=== PATIENT | male | born 1940 | race Caucasian/White ===

== ENCOUNTER 2018-03-21 11:30 | Day surgery (SDC) | payer MEDICARE, BC ==
[~2018-03-21] VITALS: Ht 177.8 cm; Wt 93.0 kg
[~2018-03-21 11:30] MED LIST: ATOR40TA PO; Aspirin EC81 MG PO; Dyazide 37.5-21 EACH PO; EZET10 PO; LISI20 PO; METO50ER PO
[2018-03-21] MEDS ORDERED: Prilosec Otc20 MG PO (12:00)
== END 2018-03-21 13:24 | disposition home or self-care (01) ==
LOC: ORSCSDS 11:30
PROVIDERS: Student in an Organized Health Care Education/Training Program
PROC: 0DB68ZX Excision of Stomach, Via Natural or Artificial Opening Endoscopic, Diagnostic (ICD-10-PCS; principal; 2018-03-21 12:45)
PROC: 0DB98ZX Excision of Duodenum, Via Natural or Artificial Opening Endoscopic, Diagnostic (ICD-10-PCS; principal; 2018-03-21 12:45)
PROC: 0DB58ZX Excision of Esophagus, Via Natural or Artificial Opening Endoscopic, Diagnostic (ICD-10-PCS; principal; 2018-03-21 12:45)
DX: R10.13 Epigastric pain (principal); R13.10 Dysphagia, unspecified; K21.9 Gastro-esophageal reflux disease without esophagitis; K22.70 Barrett's esophagus without dysplasia; K44.9 Diaphragmatic hernia without obstruction or gangrene; I10 Essential (primary) hypertension; I25.10 Atherosclerotic heart disease of native coronary artery without angina pectoris; E78.00 Pure hypercholesterolemia, unspecified; Z79.899 Other long term (current) drug therapy
CPT/HCPCS: 88305; 88342; J7120

== ENCOUNTER 2018-11-14 11:19 | Day surgery (SDC) | payer MEDICARE, BC ==
[~2018-11-14] VITALS: Ht 177.8 cm; Wt 93.1 kg
[~2018-11-14 11:19] MED LIST changes: +ASCO500 PO; +Aspir 8181 MG PO; +DAILY VALUE1 EACH PO; +Prilosec Otc20 MG PO
--- NOTE | 2018-11-14 14:33 | NUR ---
11/14/18 1433 Summer Marroquin V PT HAD LOW BP UPON ARRIVING TO SDU. REPORT GIVEN BY ORS.NSC TO ORS.NVP WHO ASSUMED CARE. PT DENIED FEELING SYMPTOMATIC. PT GIVEN 125ML OF LR AND A CUP OF COFFEE. BP IMPROVED, D/C INSTRUCTIONS COMPLETED, AND PT D/C HOME PER PROTOCOL.
== END 2018-11-14 14:24 | disposition home or self-care (01) ==
LOC: ORSCSDS 11:19
PROVIDERS: Student in an Organized Health Care Education/Training Program
PROC: 0DB58ZX Excision of Esophagus, Via Natural or Artificial Opening Endoscopic, Diagnostic (ICD-10-PCS; principal; 2018-11-14 12:45)
DX: K22.70 Barrett's esophagus without dysplasia (principal); K44.9 Diaphragmatic hernia without obstruction or gangrene; I10 Essential (primary) hypertension; I25.810 Atherosclerosis of coronary artery bypass graft(s) without angina pectoris; Z79.82 Long term (current) use of aspirin; Z79.899 Other long term (current) drug therapy
CPT/HCPCS: 88305; 88312; J2704

== ENCOUNTER 2020-04-16 08:59 | Inpatient (IN) | payer MEDICARE, BC ==
[~2020-04-16] VITALS: Ht 177.8 cm; Wt 87.1 kg
[~2020-04-16 08:59] MED LIST changes: -DAILY VALUE1 EACH PO; +DYAZIDE 37.5-21 EACH PO; -Dyazide 37.5-21 EACH PO; +MULTI-VITAMIN1 EAC2 PO
[2020-04-16 09:59] LABS: BASOPHILS ABSOLUTE AUTO 0.04 K/mm3 (0.00-0.23); BASOPHILS PERCENT AUTO 1 % (0-2); EOSINOPHILS ABSOLUTE AUTO 0.22 K/mm3 (0.00-0.68); EOSINOPHILS PERCENT AUTO 3 % (0-6); Hematocrit 47.9 % (37.0-53.0); Hemoglobin 15.9 g/dL (13.5-17.5); IMMATURE GRAN ABSOLUTE AUTO 0.02 K/mm3 (0.00-0.10); IMMATURE GRAN PERCENT AUTO 0 % (0-1); LYMPHOCYTES ABSOLUTE AUTO 1.14 K/mm3 (0.84-5.20); LYMPHOCYTES PERCENT AUTO 16 % (21-46); MONOCYTES ABSOLUTE AUTO 0.98 K/mm3 (0.16-1.47); MONOCYTES PERCENT AUTO 13 % (4-13); Mean Corpuscular HGB 30.1 pg (26.0-34.0); Mean Corpuscular HGB Conc 33.2 g/dL (31.5-36.5); Mean Corpuscular Volume 91 fL (80-100); Mean Platelet Volume 9.7 fL (9.1-12.4); NEUTROPHILS ABSOLUTE AUTO 4.89 K/mm3 (1.96-9.15); NEUTROPHILS PERCENT AUTO 67 % (41-73); Platelet Count 240 K/mm3 (150-400); RDW Coefficient Variation 12.9 % (11.7-14.2); RDW Standard Deviation 43.3 fL (35.1-46.3); Red Blood Cell Count 5.28 M/mm3 (4.30-5.90); White Blood Cell Count 7.29 K/mm3 (4.00-11.30)
[2020-04-16 10:18] LABS: Alanine Aminotransfer (ALT/SGP 45 U/L (12-78); Albumin/Globulin Ratio 1.1 (0.8-1.8); Alk Phos 55 U/L (50-136); Anion Gap 10 mmol/L (6-16); Aspartate Aminotrans (AST/SGOT 33 U/L (12-37); Bilirubin, Total 0.7 mg/dL (0.1-1.0); Blood Urea Nitrogen 16 mg/dL (8-24); Bun/Creatinine Ratio 19.5 (12.0-20.0); CO2, Blood 26 mmol/L (21-32); Calcium, Blood 9.1 mg/dL (8.5-10.1); Chloride, Blood 99 mmol/L (98-108); Creatinine, Blood 0.82 mg/dL (0.60-1.20); Globulin, Blood 3.5 g/dL (2.2-4.0); Glomerular Filtration Rate >60 (60-); Glucose, Blood 86 mg/dL (70-99); Sodium, Blood 135 mmol/L (136-145); Total Protein, Blood 7.5 g/dL (6.4-8.2)
[2020-04-16 10:22] LABS: Troponin I 0.607 ng/mL (0.000-0.040)
[2020-04-16] MEDS ORDERED: LISI20 PO (10:42)
[2020-04-16] MEDS ORDERED: Inderal 20 mg T20 MG PO (10:45)
[2020-04-16 12:07] LABS: CPK Creatine Kinase 77 U/L (39-308)
[2020-04-16 12:12] LABS: International Normalized Ratio 1.14; Prothrombin Time Results 12.1 Sec (9.7-11.5)
[2020-04-16 16:25] LABS: Influenza A, PCR NEGATIVE (NEGATIVE); Influenza B, PCR NEGATIVE (NEGATIVE); Resp Syncytial Virus, PCR NEGATIVE (NEGATIVE); SARS-Cov-2 (COVID-19) PCR, MMC NEGATIVE (NEGATIVE)
--- NOTE | 2020-04-16 17:53 | NUR ---
SHIFT SUMMARY PT ADMITTED FROM THE ER FOR CHEST DISCOMFORT RELATED TO NSTEMI. HE CAME INTO THE ED YESTERDAY AND WENT AMA DUE TO NEEDING TO CARE FOR ANIMALS AT HOME. HE IS SBA/IND IN THE ROOM. HE HAS NOT C/O ANY CP/PRESSURE/DYSPNEA THIS SHIFT. CONSENT FOR DEANGELO SIGNED AND IN THE CHART. NPO AT MIDNIGHT FOR ANGIO. VSS.
[2020-04-16 20:05] LABS: CPK Creatine Kinase 73 U/L (39-308)
--- NOTE | 2020-04-17 04:04 | NUR ---
SHIFT SUMMARY ASSUMED CARE OF PT AT 1900. PT IS A/OX4. HEART SOUNDS REGULAR, LUNG SOUNDS CLEAR. PT IS INDEPENDENT IN HIS ROOM. PT APTT WAS 139, PHARMACY CONSULTED AND SAID TO STOP HEPRIN FOR 1 HOUR AND RESTART AT LOWER RATE. PT TROPONIN WAS ELEVATED ALSO, CHARGE NURSE NOTIFIED AND SAID THAT THIS WAS AN ACCEPTABLE HIGH. PT ALREADY RECEIVING THERAPY AND BEEN NPO SINCE MIDNIGHT FOR ANGIO THIS AM. CALL LIGHT IN REACH, BED IN LOWEST POSTION.
[2020-04-17 04:33] LABS: BASOPHILS ABSOLUTE AUTO 0.03 K/mm3 (0.00-0.23); BASOPHILS PERCENT AUTO 1 % (0-2); EOSINOPHILS PERCENT AUTO 3 % (0-6); Hematocrit 42.8 % (37.0-53.0); Hemoglobin 14.9 g/dL (13.5-17.5); IMMATURE GRAN ABSOLUTE AUTO 0.02 K/mm3 (0.00-0.10); IMMATURE GRAN PERCENT AUTO 0 % (0-1); LYMPHOCYTES ABSOLUTE AUTO 1.37 K/mm3 (0.84-5.20); LYMPHOCYTES PERCENT AUTO 21 % (21-46); MONOCYTES ABSOLUTE AUTO 0.84 K/mm3 (0.16-1.47); MONOCYTES PERCENT AUTO 13 % (4-13); Mean Corpuscular HGB 30.8 pg (26.0-34.0); Mean Corpuscular HGB Conc 34.8 g/dL (31.5-36.5); Mean Corpuscular Volume 89 fL (80-100); Mean Platelet Volume 9.4 fL (9.1-12.4); NEUTROPHILS ABSOLUTE AUTO 3.95 K/mm3 (1.96-9.15); NEUTROPHILS PERCENT AUTO 62 % (41-73); Platelet Count 189 K/mm3 (150-400); RDW Coefficient Variation 12.9 % (11.7-14.2); Red Blood Cell Count 4.83 M/mm3 (4.30-5.90); White Blood Cell Count 6.41 K/mm3 (4.00-11.30)
[2020-04-17 05:04] LABS: Alanine Aminotransfer (ALT/SGP 35 U/L (12-78); Albumin, Blood 3.4 g/dL (3.4-5.0); Albumin/Globulin Ratio 1.1 (0.8-1.8); Alk Phos 49 U/L (50-136); Anion Gap 7 mmol/L (6-16); Aspartate Aminotrans (AST/SGOT 24 U/L (12-37); Bilirubin, Total 0.7 mg/dL (0.1-1.0); Blood Urea Nitrogen 19 mg/dL (8-24); CO2, Blood 29 mmol/L (21-32); Calcium, Blood 8.9 mg/dL (8.5-10.1); Chloride, Blood 101 mmol/L (98-108); Creatinine, Blood 0.79 mg/dL (0.60-1.20); Globulin, Blood 3.2 g/dL (2.2-4.0); Glomerular Filtration Rate >60 (60-); Glucose, Blood 97 mg/dL (70-99); Potassium, Blood 3.9 mmol/L (3.5-5.5); Sodium, Blood 137 mmol/L (136-145); Total Protein, Blood 6.6 g/dL (6.4-8.2)
--- NOTE | 2020-04-17 08:00 | NUR ---
pt laying in bed awake a/ox3, pleasant and cooperative with care, follows commands well, denies any complaints of pain or sob, states he's feeling ok, lungs are clear t/o, resp even and unlabored, no cough noted, hrr, tele in place running sr with pvc's per montior, see strip, no edema noted, ppp+1, cap refill <3 sec, vs stable, afebrile, iv sites are clear and patent, btx4, abd flat soft nontender, voids without diff, reddy urine, skin c/w/d, maew, ning, call light in reach.
--- NOTE | 2020-04-17 15:56 | NUR ---
PT ARRIVAL TO ICU... PT ARRIVED TO ICU AT 1430, PT IS A&Ox4 S/P 4 STENTS IN THE CHEF INSTRUCTOR WITH A FEM-STOP TO THE LEFT GROIN AND A FAILED RIGHT GROIN ACCESS. FEM-STOP IS SET TO 80mmHG, SMALL AMOUNT OF BLOOD NOTED UNDER THE FEM-STOP. PT DENIES PAIN AT THIS TIME, VS STABLE, SR W/PACS IN THE 70'S-80'S. DENIES CHEST PAIN/PRESSURE. L/S CLEAR T/O ON RA. PT'S LEFT FOOT IS DUSKY, COOL WITH A >3 SECOND CAP REFILL. DORSAL PEDAL PULSE NOT FOUND ON THE LEFT SIDE, A DOPPLER WAS USED AND THE DORSAL PEDAL PULSE WAS STILL NOT FOUND. POST. TIBIAL PULSE WAS FOUND USING DOPPLER ON THE LEFT FOOT. THE FEM-STOP WAS DECREASED FROM 80mmHG TO 40mmHG TO SEE IF A PULSE COULD BE FOUND WITH LESS PRESSURE ON THE FEMSTOP, HOWEVER THERE STILL NO PEDAL PULSE FOUND. DR. DSOUZA WAS NOTIFIED OF NO PEDAL PULSE ON THE LEFT FOOT. CAME INTO THE ROOM TO ASSESS THE PT. PER DR. DSOUZA HE IS OKAY WITH ONLY HAVING THE POST. TIBIAL PULSE BEING PRESENT AT THIS TIME. THERE WAS ALSO NOTED OOZING AT THE FEM-STOP, DR. DSOUZA REPOSITIONED THE FEM-STOP AND THE OOZING STOPED. PT CONTINUES TO DENY ANY PAIN AT THIS TIME. THE FEM-STOP IS TO STAY IN PLACE AT 40mmHG UNTIL 1900, THEN IT CAN BE REMOVED. PT IS TO STAY FLAT UNTIL 2100. PT HAS NS RUNNING AT 100MLS/HR FOR 1l THEN DR. DSOUZA WANTS THE NS TO RUN AT 50MLS/HR AND THEN STOP THE FLUIDS. CALL LIGHT IN REACH WILL CONTINUE TO MONITOR.
--- NOTE | 2020-04-17 17:08 | NUR ---
SHIFT SUMMARY.... NO ACUTE NEGATIVE CHANGES SINCE PT ARRIVED ON UNIT. PT'S VS HAVE BEEN STABLE. FEM-STOP STILL IN PLACE UNTIL [address] DSOUZA'S ORDERS, ONCE THE FEM-STOP IS OFF PT MAY SIT UP TO 45 DEGREES AND EAT HIS DINNER TRAY. AT 2099 PT MAY GET UP AND WALK AROUND PER DR. DSOUZA'S VERBAL ORDER WELL. PT HAS NS RUNNING AT 100MLS/HR FOR ONE LITER, ONCE THIS IS DONE HE WANTS ANOTHER LITER TO RUN AT 50MLS/HR THEN FOR THE PT TO BE S/L. PT CONTINUES TO DENY ANY CHEST PAIN/PRESSURE OR ANY OTHER PAIN. PT IS TO GO BACK TO [facility] ON SUNDAY FOR ANOTHER PROCEDURE WITH DR. SAHU. PT HAS VERBALIZED HIS UNDERSTANDING OF THE PLAN OF CARE AND IS AGREEABLE AT THIS TIME. WILL CONTINUE TO MONITOR UNTIL REPORT IS GIVEN TO ONCOMING RN.
--- NOTE | 2020-04-17 20:55 | NUR ---
ASSUMPTION OF CARE PT AWAKE IN BED, ORIENTED TO SELF, EVENT, LOCATION, DATE AND FOLLOWING DIRECTIONS. REDNESS NOTED TO PTS L SCLERA, PT DENIES ANY INJURY. O2 SATURATIONS> 90% ON RA, MONITOR SHOWS SINUS RHYTHM WITH HR 70'S, BP STABLE. PT DENIES CP OR SOB. L PEDAL PULSES VERY FAINT, VERIFIED WITH DOPPLER. FEMSTOP IN PLACE TO L GROIN ACCESS SITE, SOME RED BLOOD NOTED AROUND FEMSTOP, DIFFICULT TO DISCERN IF CONTINUED OOZING OR OLD BLOOD. FEMSTOP INFLATED TO 30mmhg UPON ASSUMPTION OF CARE, @ 1999 FEMSTOP DEFLATED, REMOVED, SITE CLEANED AND TITO DRESSING PLACED, FEMSTOP REAPPLIED WITH MINIMAL PRESSURE TO SITE, PLAN TO RE-EVALUATE @ 2100 TO POSSIBLY REMOVE IF NO ADDITIONAL BLOOD PRESENT. PT DENIES ANY ABDOMINAL/BACK PAIN, ABD IS SOFT AND NONTENDER, SOME BRUISING NOTED AROUND L GROIN SITE, NO HEMATOMA PRESENT. PT PLACED IN REVERSE [place] FOR EATING, TOLERATES PO INTAKE, SWALLOWS PILLS WHOLE WITH WATER. PT VOIDS IN URINAL WITH SOME ASSISTANCE. PT MOVES ALL EXTREMETIES, CALL LIGHT WITHIN REACH, PT USING APPROPRIATELY.
--- NOTE | 2020-04-17 21:11 | NUR ---
FEMSTOP REMOVED NO NEW OOZING NOTED TO L GROIN SITE, FEMSTOP REMOVED, TITO DRESSING WITH TEGADERM IN PLACE.
--- NOTE | 2020-04-17 21:48 | NUR ---
L GROIN SITE REMAINS STABLE, NO NEW BLEEDING/OOZING, SITE SOFT AND NONTENDER.
--- NOTE | 2020-04-18 00:20 | NUR ---
CHEST PAIN TO PTS ROOM AND PT REPORTS MIDSTERNAL CHEST PAIN WITH INSPIRATION ALONG WITH CONSTANT SHARP BILAT SHOULDER PAIN, 8/10. NEW ORDER FOR EKG, FURTHER DISCUSSED WITH DR LEON, ONE TIME ORDER FOR 15mg TORADAL, HYDRALAZINE ADMINISTERED FOR SBP> 160. PT REPORTS LITTLE RELIEF WITH TORADAL, SBP 140'S. 0.4mg NITRO SL ADMINISTERED, PTS BP DROPPED TO 93/48 BUT HAD QUICK IMPROVEMENT TO 135/60. PT REPORTS CHEST PAIN IMPROVED TO 3/10.
[2020-04-18 04:16] LABS: BASOPHILS ABSOLUTE AUTO 0.03 K/mm3 (0.00-0.23); BASOPHILS PERCENT AUTO 0 % (0-2); EOSINOPHILS ABSOLUTE AUTO 0.11 K/mm3 (0.00-0.68); EOSINOPHILS PERCENT AUTO 1 % (0-6); Hematocrit 41.3 % (37.0-53.0); Hemoglobin 14.1 g/dL (13.5-17.5); IMMATURE GRAN ABSOLUTE AUTO 0.04 K/mm3 (0.00-0.10); IMMATURE GRAN PERCENT AUTO 0 % (0-1); LYMPHOCYTES ABSOLUTE AUTO 0.98 K/mm3 (0.84-5.20); LYMPHOCYTES PERCENT AUTO 10 % (21-46); MONOCYTES ABSOLUTE AUTO 0.99 K/mm3 (0.16-1.47); MONOCYTES PERCENT AUTO 10 % (4-13); Mean Corpuscular HGB 30.5 pg (26.0-34.0); Mean Corpuscular HGB Conc 34.1 g/dL (31.5-36.5); Mean Corpuscular Volume 89 fL (80-100); Mean Platelet Volume 9.5 fL (9.1-12.4); NEUTROPHILS ABSOLUTE AUTO 7.37 K/mm3 (1.96-9.15); NEUTROPHILS PERCENT AUTO 77 % (41-73); Platelet Count 198 K/mm3 (150-400); RDW Coefficient Variation 13.1 % (11.7-14.2); RDW Standard Deviation 42.9 fL (35.1-46.3); Red Blood Cell Count 4.62 M/mm3 (4.30-5.90); White Blood Cell Count 9.52 K/mm3 (4.00-11.30)
[2020-04-18 04:41] LABS: Alanine Aminotransfer (ALT/SGP 31 U/L (12-78); Albumin, Blood 3.4 g/dL (3.4-5.0); Albumin/Globulin Ratio 1.1 (0.8-1.8); Alk Phos 48 U/L (50-136); Anion Gap 6 mmol/L (6-16); Aspartate Aminotrans (AST/SGOT 25 U/L (12-37); Bilirubin, Total 0.5 mg/dL (0.1-1.0); Blood Urea Nitrogen 19 mg/dL (8-24); Bun/Creatinine Ratio 26.5 (12.0-20.0); CO2, Blood 28 mmol/L (21-32); Calcium, Blood 9.1 mg/dL (8.5-10.1); Chloride, Blood 104 mmol/L (98-108); Creatinine, Blood 0.72 mg/dL (0.60-1.20); Glomerular Filtration Rate >60 (60-); Glucose, Blood 97 mg/dL (70-99); Potassium, Blood 3.6 mmol/L (3.5-5.5); Sodium, Blood 138 mmol/L (136-145); Total Protein, Blood 6.4 g/dL (6.4-8.2)
--- NOTE | 2020-04-18 07:32 | NUR ---
CP/BRADYCARDIA/SHIFT SUMMARY @ APPROX 0300, PT REPORTED CP INCREASING TO 9/10 AND IS NOW CONSTANT. SL NITRO ADMINISTERED WITH NO RELEIF. CALL PLACED TO DR DSOUZA, NEW ORDERS FOR MORPHINE, NITRO PATCH AND REPEAT EKG. NO RELEIFT WITH NITRO PATCH AND MORPHINE. FENTANYL ADMINISTERD WITH NO RELEIF AND THEN GI COCKTAIL ADMINISTERED, PT REPORTS VERY MINIMAL RELEIF WITH CP DOWN TO 5/10, GRIMACING NOTED WITH EXERTION. PT PLACED ON 2L PER NC FOR ADDITIONAL SUPPORT. PT BECAME VERY COLD, SHIVERING, NOT DIAPHORETIC, WARM BLANKETS PROVIDED. PT REPORTED TO THIS RN THAT HE DOES NOT WANT ANY FORM OF RESUCITAION. DISCUSSED WTIH DR HOANG, CODE STATUS CHANGED TO DNR, PURPLE ARMBAND PLACED ON PTS LEFT WRIST. AT APPROX 0600 IT WAS NOTICED THAT PT WAS VOMITING AND HR DROPPED TO 38, BRADYCARDIA LASTED LESS THAN 20 SECONDS. PT DISORIENTED, ASKING "WHAT HAPPENED" AND THEN STATING "I THINK I ", PT BECAME MORE ORIENTED, BACK TO BASELINE, WITH HR 80'S, SINUS RHYTHM. ZOFRAN ADMINISTERD AND PT LAID DOWN TO GO TO SLEEP. DR DSOUZA UPDATED ON PTS STATUS, NEW ORDER FOR EKG WHEN PT WAKES UP, DC BRILINTA AND ORDER PLAVIX DAILY. REPORT GIVEN TO JD SAAVEDRA.
[2020-04-18 09:46] LABS: Source, Urine Catheter
[2020-04-18 09:50] LABS: Appearance, Urine Clear (Clear); Bilirubin, Urine Neg (Neg); Blood, Urine Neg (Neg); Color, Urine Yellow (P-Yellow); Glucose Qualitative, Urine Neg (Neg); Ketones, Urine 1+ (Neg); Leukocyte Esterase, Urine Neg (Neg); Nitrite, Urine Neg (Neg); Protein, Urine 1+ (Neg); Urobilinogen, Urine NORM (Normal)
--- NOTE | 2020-04-18 12:06 | NUR ---
AM NOTE... ASSUMED CARE OF PT AT 0715. AT 0720: PT IS A&Ox4. PT IS C/O OF 2/10 CHEST PAIN ON FIRST ASSESSMENT, PT WAS ALSO C/O OF A DRY COUGH AND SOB. AT 0735 PT STARTED TO C/O OF LEFT SHOULDER PAIN AT 8/10, SHORTLY AFTER THE SHOULDER PAIN SATARTED PT STARTED TO C/O OF 8/10 CHEST PAIN WHEN TAKING A BREATH. PT HAS A NITRO PATCH ON THE LEFT UPPER CHEST THAT WAS PRESENT AT THE START OF THIS SHIFT. PT ALSO HAD NS AT 50/MLS RUNNING PER ORDERS. PT'S BP STABLE WITH SBPs 120'S-130'S, HR STABLE SR W/1ST DEGREE AND OCC PACs. AN EKG WAS DONE PER PROVIDER'S ORDERS. PROVIDER WAS CALLED WITH UPDATE ON THE PT ABOUT HIS CP/SOB/SHOULDER PAIN AND EKG RESULTS. PER ORDERS A NITRO GTT WAS STARTED AT 10MCG/MIN, A STAT MAG WAS DRAWN AND A 2GM MAG RIDER WAS STARTED PER ORDERS. AT APROX 0815 DR. DSOUZA WAS AT THE BEDSIDE TO ASSESS THE PT. PT STILL C/O OF CHEST PAIN AFTER THE NITRO GTT WAS STARTED, THE NITRO PATCH ON THE LEFT CHEST WALL WAS REMOVED. A DENNY WAS PLACED D/T RETENTION AND THE PT BEING ON BED REST AT THE TIME. A STAT CHEST CTA WAS ORDERED AND THE PT WAS TAKEN TO CT. PT WAS RETURNED TO HIS ROOM, THE NITRO GTT WAS PLACED ON STANDBY D/T LOW BPs OF 80'S/50'S, A 1000MLS BOLUS OF NS WAS STARTED PER VERBAL ORDERS FROM DR. DSOUZA. PT RETURNED TO ICU 13 AND WAS TAKEN TO THE RADIO AERIAL INSTALLER AT 1025. PT WAS STILL C/O OF CHEST PAIN AT THE TIME HE LEFT. WILL CONTINUE TO MONITOR.
--- NOTE | 2020-04-18 15:59 | NUR ---
PT UPDATE... PT ARRIVED BACK FROM THE CARBON DIOXIDE OPERATOR AT 1330, PT HAS A LEFT GROIN SITE, A CENTRAL LINE TO THE RIGHT GROIN AND A TR BAND TO THE RIGHT WRIST. BOTH GROIN SITES ARE OOZING. DR. DSOUZA AT THE BEDSIDE TO ASSESS THE PT. PER DR. DSOUZA DIRECT PRESSURE FOR 20MINS WAS HELD TO THE LEFT GROIN SITE WITH A TITO DRESSING. OCNE THE 20MINS WAS DONE A SMALL AMOUNT OF OOZING WAS STILL NOTED. A SMALL AMOUNT OF OOZING WAS ALSO STILL NOTED TO THE CENTRAL LINE IN THE RIGHT GROIN WELL, A PRESSURE DRESSING WAS PLACED TO THE RIGHT CETRAL LINE SITE. AT 1600 IT WAS NOTED THAT THE LEFT GROIN SITE WAS MORE FIRM AND SLIGHTLY MORE PAINFUL THAN BEFORE. FEM-STOP WAS PLACED TO THE LEFT GROIN SITE, PROVIDER NOTIFIED, PROVIDER TO THE BEDSIDE TO ASSESS THE SITES. WILL CONTINUE TO MONITOR.
--- NOTE | 2020-04-18 16:42 | NUR ---
PT NOTED TO BE BRADYCARDIC. WHEN RN ARRIVED TO THE ROOM, PT WAS APNEIC AND IN ASYSTOLE. CPR DONE FOR APROXIMATELY ONE MINUTE AND ROSC. DR. DSOUZA ARRIVED AT THE BEDSIDE UPDATED. 12 LEAD ECG DONE. PT REPORTED NAUSEA AND VOMITED APROXIMATELY 100 CC EMESIS. MED WITH ZOFRAN 4 MG IVP X1 SEE EMAR. [address] ELEVATION NOTED TO II, III, AND AVF (INFERIOR LEADS) TUBE MOUNTER TEAM PAGED. PT TO RETURN TO THE TUBE MOUNTER TO CHECK RCA. QUENTIN MILES UPDATED TO EVENTS UPON RETURN TO ICU.
[2020-04-18 17:22] LABS: BASOPHILS ABSOLUTE AUTO 0.03 K/mm3 (0.00-0.23); BASOPHILS PERCENT AUTO 0 % (0-2); EOSINOPHILS PERCENT AUTO 0 % (0-6); Hematocrit 37.1 % (37.0-53.0); Hemoglobin 12.7 g/dL (13.5-17.5); IMMATURE GRAN ABSOLUTE AUTO 0.08 K/mm3 (0.00-0.10); IMMATURE GRAN PERCENT AUTO 1 % (0-1); LYMPHOCYTES ABSOLUTE AUTO 0.66 K/mm3 (0.84-5.20); LYMPHOCYTES PERCENT AUTO 4 % (21-46); MONOCYTES ABSOLUTE AUTO 1.22 K/mm3 (0.16-1.47); MONOCYTES PERCENT AUTO 7 % (4-13); Mean Corpuscular HGB 30.7 pg (26.0-34.0); Mean Corpuscular HGB Conc 34.2 g/dL (31.5-36.5); Mean Corpuscular Volume 90 fL (80-100); Mean Platelet Volume 9.7 fL (9.1-12.4); NEUTROPHILS ABSOLUTE AUTO 15.76 K/mm3 (1.96-9.15); NEUTROPHILS PERCENT AUTO 89 % (41-73); Platelet Count 212 K/mm3 (150-400); RDW Coefficient Variation 13.2 % (11.7-14.2); RDW Standard Deviation 43.6 fL (35.1-46.3); Red Blood Cell Count 4.14 M/mm3 (4.30-5.90); White Blood Cell Count 17.75 K/mm3 (4.00-11.30)
[2020-04-18 17:38] LABS: Anion Gap 8 mmol/L (6-16); Blood Urea Nitrogen 17 mg/dL (8-24); Bun/Creatinine Ratio 17.3 (12.0-20.0); CO2, Blood 25 mmol/L (21-32); Calcium, Blood 8.4 mg/dL (8.5-10.1); Chloride, Blood 102 mmol/L (98-108); Creatinine, Blood 0.98 mg/dL (0.60-1.20); Glomerular Filtration Rate >60 (60-); Glucose, Blood 132 mg/dL (70-99); Magnesium, Blood 2.9 mg/dL (1.6-2.4); Phosphorus, Blood 3.1 mg/dL (2.5-4.9); Sodium, Blood 135 mmol/L (136-145)
[2020-04-18 17:49] LABS: Troponin I 0.765 ng/mL (0.000-0.040)
[2020-04-18 18:06] LABS: PCO2 Arterial 40.9 mmHg (35-45); PO2 Arterial 136 mmHg (80-100)
[2020-04-18 18:07] LABS: pH Blood Arterial 7.27 (7.35-7.45)
--- NOTE | 2020-04-18 20:12 | NUR ---
PT UPDATE... AT APROX 1720 THIS RN WAS IN THE ROOM GIVING PROPHYLACTIC DOSE OF 25MG PHENERGAN WHEN HE SAID "OH NO I'M GOING TO THROW UP." PT ATTEMPTED TO SIT UP TO VOMIT BUT WENT INTO ASYSTOLE. THIS RN STARTED COMPRESSIONS RIGHT AWAY, A CODE WAS CALLED AT THE SAME TIME. COMPRESSIONS WERE TAKEN OVER BY ANOTHER RN SO THIS RN COULD RECORD AND INFORM THE PROVIDERS ON THE EVENTS THAT TOOK PLACE. ROSC WAS OBTAINED AFTER APROX 2 MINS OF CPR. PT WAS THEN INTUBATED (SEE CODE CHART.) PT WAS THEN TAKEN TO THE REGULATORY COMPLIANCE SPECIALIST AT 1815. THIS RN ATTENDED THE PT TO THE REGULATORY COMPLIANCE SPECIALIST TO ASSIST WITH THE DRIPS. PT'S GRANDSON WAS CALLED BY THE INSTRUMENT STERILIZER DR. DSOUZA. REPORT WAS GIVEN TO QUENTIN Jarquin IN THE REGULATORY COMPLIANCE SPECIALIST.
--- NOTE | 2020-04-18 21:50 | NUR ---
PATIENT IN FOOD SAFETY DIRECTOR WITH DOCTOR DSOUZA, PLACED IMPELLA 2.8/2.2 AT 84 CM TO LEFT GROIN. PLACED TRANSVENOUS PACER TO LEFT FEMORAL VEIN, RATE 70, 4 MA, 5 SENSING, WITH OCCASIONAL [place] BEAT. ART LINE PLACED RIGHT WRIST. SWAN LINE PLACED TO LEFT IJ, SEE FOOD SAFETY DIRECTOR CHARTING FOR PA READINGS. DOCTOR DSOUZA HAS AN ACCEPTING DOCTOR AT [facility] AND A ROOM 112 IN THEIR CARDIAC ICU. AT END OF CASE PATIENT INTUBATED WITH 7.5 TUBE 23 AT TEETH, VENT SET AT AC 24, TV 400, PEEP 5, FIO2 100% PROPOFOL AT 50 MCG/KG/MIN, LEVOPHED 15 MCG/MIN, AND HEPARIN RESTARTED AT 350 UNITS/HR. DOCTOR DSOUZA TALKED WITH PATIENTS [place] GRAY REGARDING TRANSFER DUE TO PATIENT UNABLE TO CONSENT TO TRANSFER. PATIENT LEAVING FROM FOOD SAFETY DIRECTOR VIA AMBULANCE WITH REACH CREW.
--- NOTE | 2020-04-18 22:13 | NUR ---
REPORT CALLED TO ORTIZ RN AT [facility], DENTURES WITH PATIENT AND OTHER BELONGINGS SENT HOME WITH HILTON (FRIEND)
== END 2020-04-18 21:50 | disposition short-term general hospital (02) | DRG 215 ==
LOC: ER 08:59 → PCU 09:00 → ER 13:05 → PCU 13:28 → ICUW 04-17 14:07
PROVIDERS: Emergency Medicine; Internal Medicine; Internal Medicine Cardiovascular Disease; Pharmacist; ADMIT Internal Medicine
PROC: 027137Z Dilation of Coronary Artery, Two Arteries with Four or More Drug-eluting Intraluminal Devices, Percutaneous Approach (ICD-10-PCS; 2020-04-17)
PROC: B2131ZZ Fluoroscopy of Multiple Coronary Artery Bypass Grafts using Low Osmolar Contrast (ICD-10-PCS; 2020-04-17)
PROC: B2111ZZ Fluoroscopy of Multiple Coronary Arteries using Low Osmolar Contrast (ICD-10-PCS; 2020-04-17)
PROC: B2131ZZ Fluoroscopy of Multiple Coronary Artery Bypass Grafts using Low Osmolar Contrast (ICD-10-PCS; 2020-04-17)
PROC: B2181ZZ Fluoroscopy of Left Internal Mammary Bypass Graft using Low Osmolar Contrast (ICD-10-PCS; 2020-04-17)
PROC: 0BH18EZ Insertion of Endotracheal Airway into Trachea, Via Natural or Artificial Opening Endoscopic (ICD-10-PCS; principal; 2020-04-18)
PROC: 02HA3RZ Insertion of Short-term External Heart Assist System into Heart, Percutaneous Approach (ICD-10-PCS; 2020-04-18)
PROC: 027034Z Dilation of Coronary Artery, One Artery with Drug-eluting Intraluminal Device, Percutaneous Approach (ICD-10-PCS; 2020-04-18)
PROC: 5A0221D Assistance with Cardiac Output using Impeller Pump, Continuous (ICD-10-PCS; 2020-04-18)
PROC: 5A12012 Performance of Cardiac Output, Single, Manual (ICD-10-PCS; 2020-04-18)
PROC: B2111ZZ Fluoroscopy of Multiple Coronary Arteries using Low Osmolar Contrast (ICD-10-PCS; 2020-04-18)
PROC: B2131ZZ Fluoroscopy of Multiple Coronary Artery Bypass Grafts using Low Osmolar Contrast (ICD-10-PCS; 2020-04-18)
PROC: 4A023N7 Measurement of Cardiac Sampling and Pressure, Left Heart, Percutaneous Approach (ICD-10-PCS; 2020-04-18)
PROC: B2151ZZ Fluoroscopy of Left Heart using Low Osmolar Contrast (ICD-10-PCS; 2020-04-18)
DX: I21.4 Non-ST elevation (NSTEMI) myocardial infarction (principal); R57.0 Cardiogenic shock; I46.9 Cardiac arrest, cause unspecified; I25.810 Atherosclerosis of coronary artery bypass graft(s) without angina pectoris; J44.9 Chronic obstructive pulmonary disease, unspecified; K21.9 Gastro-esophageal reflux disease without esophagitis; Z66 Do not resuscitate; R94.31 Abnormal electrocardiogram [ECG] [EKG]; I77.1 Stricture of artery; I10 Essential (primary) hypertension; E78.5 Hyperlipidemia, unspecified; I25.2 Old myocardial infarction; Z95.5 Presence of coronary angioplasty implant and graft; Z95.1 Presence of aortocoronary bypass graft; Z98.890 Other specified postprocedural states; Z87.891 Personal history of nicotine dependence; Z79.899 Other long term (current) drug therapy; Z79.82 Long term (current) use of aspirin
CPT/HCPCS: 0241U; 31500; 33210; 33990; 36415; 36556; 36600; 51703; 71045; 71046; 71275; 75756; 76937; 80048; 80053; 82550; 82803; 83735; 83880; 84100; 84484; 85025; 85347; 85379; 85610; 85730; 93005; 93010; 93306; 93312; 93325; 93455; 93459; 93461; 93571; 94002; 94760; 96374-59; 96376; 99152; 99153; 99285-25; A9270; C1725; C1751; C1757; C1760; C1769; C1874; C1887; C1894; C9600; C9604; C9605; G0278; G0378; J0280; J0282; J0360; J0610; J1265; J1644; J1885; J2250; J2270; J2370; J2405; J2704; J3010; J3246; J3475; J7030; J7040; J7050; J7060; Q9967

== ENCOUNTER 2021-02-19 08:01 | Inpatient (IN) | payer MEDICARE, BC ==
[~2021-02-19] VITALS: Ht 177.8 cm; Wt 86.7 kg
[~2021-02-19 08:01] MED LIST changes: +Inderal 20 mg T20 MG PO
[2021-02-19 08:42] LABS: BASOPHILS ABSOLUTE AUTO 0.03 K/mm3 (0.00-0.23); BASOPHILS PERCENT AUTO 0 % (0-2); EOSINOPHILS ABSOLUTE AUTO 0.01 K/mm3 (0.00-0.68); EOSINOPHILS PERCENT AUTO 0 % (0-6); Hematocrit 43.9 % (37.0-53.0); Hemoglobin 13.8 g/dL (13.5-17.5); IMMATURE GRAN ABSOLUTE AUTO 0.16 K/mm3 (0.00-0.10); IMMATURE GRAN PERCENT AUTO 1 % (0-1); LYMPHOCYTES ABSOLUTE AUTO 0.44 K/mm3 (0.84-5.20); LYMPHOCYTES PERCENT AUTO 2 % (21-46); MONOCYTES ABSOLUTE AUTO 1.02 K/mm3 (0.16-1.47); MONOCYTES PERCENT AUTO 6 % (4-13); Mean Corpuscular HGB Conc 31.4 g/dL (31.5-36.5); Mean Corpuscular Volume 95 fL (80-100); Mean Platelet Volume 9.7 fL (9.1-12.4); NEUTROPHILS ABSOLUTE AUTO 17.02 K/mm3 (1.96-9.15); NEUTROPHILS PERCENT AUTO 91 % (41-73); Platelet Count 270 K/mm3 (150-400); RDW Coefficient Variation 14.8 % (11.7-14.2); RDW Standard Deviation 51.9 fL (35.1-46.3); White Blood Cell Count 18.68 K/mm3 (4.00-11.30)
[2021-02-19 09:00] LABS: Albumin, Blood 3.7 g/dL (3.4-5.0); Bilirubin, Total 1.1 mg/dL (0.1-1.0); Bun/Creatinine Ratio 27.1 (12.0-20.0); Calcium, Blood 9.3 mg/dL (8.5-10.1); Creatinine, Blood 1.44 mg/dL (0.60-1.20); Globulin, Blood 3.7 g/dL (2.2-4.0); Potassium, Blood 3.6 mmol/L (3.5-5.5); Total Protein, Blood 7.4 g/dL (6.4-8.2)
[2021-02-19 09:45] LABS: Influenza A, PCR NEGATIVE (NEGATIVE); Influenza B, PCR NEGATIVE (NEGATIVE); Resp Syncytial Virus, PCR NEGATIVE (NEGATIVE); SARS-Cov-2 (COVID-19) PCR, MMC NEGATIVE (NEGATIVE)
[2021-02-19 11:12] LABS: Anti-Xa UFH, PHA Monitoring <0.10 IU/mL; Prothrombin Time Results 14.4 Sec (9.7-11.5)
[2021-02-19] MEDS ORDERED: Amiodarone HCl200 MG PO (13:04)
[2021-02-19] MEDS ORDERED: CATAPRES0.1 MG PO (13:05)
[2021-02-19] MEDS ORDERED: CLOP75 PO (13:06)
[2021-02-19] MEDS ORDERED: EUTHYROX50 MCG PO (13:07)
[2021-02-19] MEDS ORDERED: METO25ER PO (13:08)
[2021-02-19] MEDS ORDERED: MAGNESIUM OXID500 MG PO (13:08)
[2021-02-19] MEDS ORDERED: TAMS.4ER PO (13:09)
[2021-02-19] MEDS ORDERED: NITR.4SL SL (13:09)
[2021-02-19] MEDS ORDERED: TORSE20 PO (13:10)
[2021-02-19] MEDS ORDERED: POTCHL20ER PO (13:11)
[2021-02-19] MEDS ORDERED: METO2.5 PO (15:26)
--- NOTE | 2021-02-19 18:30 | NUR ---
PATIENT ADMIT TO MED FLOOR THIS AFTERNOON. ABLE TO STAND AND TRANSFER TO BED. DENIES DIZZINESS UPON TRANSFER. NEURO WNL. PERRLA. DENIES NUMBNESS/TINGLING. ON 2L NASAL CANNULA. PATIENT STATES HE NORMALLY WEARS 2L AT NIGHT AND SOMETIMES DURING THE DAY. SATING MID 90'S. ABLE TO GET GOOD SPO2 READING WITH EAR PROBE. TELE SHOWING SINUS RHYTHM WITH 1ST DEGREE BLOCK AND HR 70'S. DENIES CHEST PAIN/PRESSURE. STATES HE HAS BEEN HAVING EPISODES AT HOME WHERE HE FEELS HE IS GOING TO PASS OUT. HE RECENTLY FELL AT HOME AND HIT CHEST ON COUNTER WHEN FALLING. SOME MUSCULOSKELETAL SORENESS THROUGHOUT. OVERALL WEAK. SOB ON EXERTION. USING URINAL IN BED. HOME MED LIST COMPLETED. SALINE LOCKED AND FLUSHING WELL. DRINKING WATER AND EATING WELL. CALL LIGHT IN REACH. CALLING FOR NEEDS. BED ALARM ON FOR SAFETY. WILL CONTINUE TO MONITOR AND REPORT OFF.
[2021-02-20 05:03] LABS: BASOPHILS ABSOLUTE AUTO 0.03 K/mm3 (0.00-0.23); BASOPHILS PERCENT AUTO 0 % (0-2); EOSINOPHILS PERCENT AUTO 0 % (0-6); Hematocrit 41.9 % (37.0-53.0); Hemoglobin 13.5 g/dL (13.5-17.5); IMMATURE GRAN ABSOLUTE AUTO 0.11 K/mm3 (0.00-0.10); IMMATURE GRAN PERCENT AUTO 1 % (0-1); LYMPHOCYTES ABSOLUTE AUTO 0.43 K/mm3 (0.84-5.20); LYMPHOCYTES PERCENT AUTO 2 % (21-46); MONOCYTES ABSOLUTE AUTO 0.54 K/mm3 (0.16-1.47); MONOCYTES PERCENT AUTO 3 % (4-13); Mean Corpuscular HGB 29.8 pg (26.0-34.0); Mean Corpuscular HGB Conc 32.2 g/dL (31.5-36.5); Mean Corpuscular Volume 93 fL (80-100); Mean Platelet Volume 10.2 fL (9.1-12.4); NEUTROPHILS ABSOLUTE AUTO 18.63 K/mm3 (1.96-9.15); NEUTROPHILS PERCENT AUTO 94 % (41-73); Platelet Count 273 K/mm3 (150-400); RDW Standard Deviation 50.7 fL (35.1-46.3); Red Blood Cell Count 4.53 M/mm3 (4.30-5.90); White Blood Cell Count 19.74 K/mm3 (4.00-11.30)
--- NOTE | 2021-02-20 05:50 | NUR ---
SHIFT SUMMARY NO ACUTE CHANGES TO REPORT THIS SHIFT. PT HAS RESTED OF AND ON T/O THE SHIFT. IV SOLUMEDROL PER ORDERS. PT APPEARS TO BE BREATHNG EASIER, SATS WNL ON 2L O2, PT BASELINE. PT HAS BEEN USING URINAL AT THE BEDSIDE BUT IS REQUESTING WALKER TO WALK TO THE BATHROOM WITH ASSISTNACE. PT STATES THAT HE WOULD LIKE TO GET OOB AND GET SOME FORM OF EXERCISE. PT IS LOOKING STRONGER AND APPEARS TO BE FEELING BETTER. VITALS ARE STABLE THIS SHIFT. BED IN LOWEST POSITION, CALL LIGHT WITHIN REACH.
--- NOTE | 2021-02-20 06:08 | NUR ---
SYNCOPE PT HAS A BEDREST ORDER WITH BATHROOM PRIVILEGES, PT REQUESTED TO GET UP TO WALK TO THE BATHROOM USING FWW. PT MADE IT TO THE BATHROOM WITHOUT ISSUE BUT WHEN HE RETURNED TO THE BED, PT BECAME FAINT AND BLACKED OUT ON THE BED. PT DID NOT RESPOND TO STAFF FOR ABOUT 3 SECONDS BUT CAME TO. PT WAS A/OX3, AND SPEECH WAS CLEAR. NEURO ASSESSMENT WAS WNL. BP WAS WNL, AROUND PT BASELINE AND DID NOT INDICATE SYNCOPE. AFTER PT CAME TO, WHEN WERE HELPING TO GET HIM SITUATED IN BED PT BLACKED OUT FOR A SECOND TIME FOR ABOUT 3 SECONDS. PT QUICKLY CAME TO AND WAS RESPONDING TO STAFF. VITAL SIGNS TAKEN AGAIN AND WERE WNL. PT HAS HX OF SYNCOPE, ALREADY AWARE OF PT SYNCOPE. PT IS LAYING IN BED AT THIS TIME WITHOUT DISTRESS AND IS BACK TO HIMSELF. DISCUSSED WITH LADIES LOCKER ROOM ATTENDANT WHO STATES JUST TO NOTIFY DAYSHIFT RN SO THAT THEY ARE AWARE, NO NEED TO NOTIFY MD AT THIS TIME SINCE THEY ARE ALREADY AWARE OF PT SYNCOPE. WILL PASS ON IN REPORT.
[2021-02-20 06:11] LABS: Albumin, Blood 3.7 g/dL (3.4-5.0); Albumin/Globulin Ratio 1.1 (0.8-1.8); Bilirubin, Total 1.5 mg/dL (0.1-1.0); Bun/Creatinine Ratio 31.4 (12.0-20.0); Calcium, Blood 9.9 mg/dL (8.5-10.1); Creatinine, Blood 1.56 mg/dL (0.60-1.20); Globulin, Blood 3.3 g/dL (2.2-4.0); Potassium, Blood 4.7 mmol/L (3.5-5.5)
--- NOTE | 2021-02-20 09:43 | NUR ---
PT HAS ELEVATED CRITICAL TROP; DR NATHAN. DENIES CP AT THIS TIME. TELE ON NS. BP WNL
--- NOTE | 2021-02-20 13:36 | NUR ---
PT STATED FEELING DIZZY AND WEAK. NS ON TELE @80S, AND BP WNL. PT ENCOURAGED TO STAY IN BED AND EDUCATED. CALLED DR HESS TO INFORM. CALL LIGHT WITHIN REACH
--- NOTE | 2021-02-20 17:55 | NUR ---
SHIFT SUMMARY PT AOX4; CALLS APPROPRIATELY. PT STATED HE HAS "WEAKNESS EPISODE AND FELT DIZZY FROM TIME TO TIME". REFUSED NAUSEA MEDS. AWARE. PT HAS ELEVATED TROPONIN TODAY; STARTED HEPARIN. PT ENCOURAGED TO STAY IN BED; AND PT USUALLY CALLS IF NEED TO USE THE URINAL. ON 2L OF 02 @ BASELINE. BED IS IN THE LOWEST POSITION. CALL LIGHT WITHIN REACH
--- NOTE | 2021-02-20 18:42 | NUR ---
DNR BAND PLACED ON R HAND; VERIFIED WITH KIRILL SAAVEDRA
[2021-02-21 00:08] LABS: Hematocrit 44.1 % (37.0-53.0); Hemoglobin 14.4 g/dL (13.5-17.5); Mean Corpuscular HGB 29.8 pg (26.0-34.0); Mean Corpuscular HGB Conc 32.7 g/dL (31.5-36.5); Mean Corpuscular Volume 91 fL (80-100); Mean Platelet Volume 9.9 fL (9.1-12.4); Platelet Count 293 K/mm3 (150-400); RDW Coefficient Variation 14.8 % (11.7-14.2); Red Blood Cell Count 4.83 M/mm3 (4.30-5.90); White Blood Cell Count 19.34 K/mm3 (4.00-11.30)
[2021-02-21 00:26] LABS: Bun/Creatinine Ratio 38.5 (12.0-20.0); Calcium, Blood 9.8 mg/dL (8.5-10.1); Creatinine, Blood 1.69 mg/dL (0.60-1.20); Potassium, Blood 4.8 mmol/L (3.5-5.5)
--- NOTE | 2021-02-21 00:34 | NUR ---
at 0010 telecommunication tower technician called to notify of 3rd degree block in 30's. landfill gas collection operator and primary nurse enroute to room at 0016 when Asystole was called, Rapid response at 0018, at 0016. Call to be placed now to rocio Otoole to inform
--- NOTE | 2021-02-21 02:24 | NUR ---
UNABLE TO REACH MASOUD'S FRIEND CLARA OR ARMAND. SPOKE WITH HIS FAMILY SPOKESPERSON, GRANDVERITO GRAY OSMAN, WHO STATED THAT GIVEN THE FACT THAT WE ARE NOT AWARE OF MASOUD'S FINAL WISHES, IT WOULD BE ALRIGHT TO SEND HIM TO NEW CASTLE HOME IN [place]. fRIEND ARMAND WILL LINE PRODUCER MASOUD'S BELONGINGS IF [facility] TAKE THEM WITH HIM
== END 2021-02-21 00:16 ==
LOC: ER 08:01 → ERHOLD 10:39 → MEDS 10:39
PROVIDERS: Emergency Medicine; Hospitalist; ADMIT Internal Medicine
DX: I21.4 Non-ST elevation (NSTEMI) myocardial infarction (principal); J96.21 Acute and chronic respiratory failure with hypoxia; J18.9 Pneumonia, unspecified organism; I50.43 Acute on chronic combined systolic (congestive) and diastolic (congestive) heart failure; N17.9 Acute kidney failure, unspecified; Z66 Do not resuscitate; E87.2 Acidosis; J44.1 Chronic obstructive pulmonary disease with (acute) exacerbation; J44.0 Chronic obstructive pulmonary disease with (acute) lower respiratory infection; I47.1 Supraventricular tachycardia; I44.2 Atrioventricular block, complete; Z20.822 Contact with and (suspected) exposure to COVID-19; I46.9 Cardiac arrest, cause unspecified; I25.10 Atherosclerotic heart disease of native coronary artery without angina pectoris; E03.9 Hypothyroidism, unspecified; N18.9 Chronic kidney disease, unspecified; Z86.74 Personal history of sudden cardiac arrest; Z99.81 Dependence on supplemental oxygen; I25.2 Old myocardial infarction; Z95.5 Presence of coronary angioplasty implant and graft; Z95.1 Presence of aortocoronary bypass graft; Z98.890 Other specified postprocedural states
CPT/HCPCS: 0241U; 36415; 71045; 80048; 80053; 83880; 84145; 84484; 85025; 85027; 85520; 85610; 85730; 93005; 93010; 94640; 94760; 96365; 96375; 99285-25; A9270; J0456; J0696; J1644; J1940; J2405; J2930; J7030; J7050